=== PATIENT | female | born 1950 | race Caucasian/White ===

== ENCOUNTER → 2018-12-05 | Outpatient (CLI) | payer MEDICARE, BC ==
[2018-12-05 12:09] LABS: ABSOLUTE BASOPHILS 0.1 thou/uL (0.0-0.2); ABSOLUTE EOSINOPHILS 0.3 thou/uL (0.0-0.7); ABSOLUTE LYMPHOCYTES 0.9 thou/uL (0.8-5.3); ABSOLUTE MONOCYTES 0.3 thou/uL (0.0-1.2); ABSOLUTE NEUTROPHILS 6.3 thou/uL (1.6-8.1); EOSINOPHILS 3.3 %; HEMATOCRIT 41.7 % (37.0-47.0); HEMOGLOBIN 13.8 gm/dL (12.0-15.0); LYMPHOCYTES 11.1 %; MCH 29.6 pg (26.0-34.0); MCHC 33.1 g/dL (28.0-37.0); MCV 89.5 fL (80.0-100.0); MONOCYTES 4.4 %; NUCLEATED RBCS 0 /100WBC; PLATELET COUNT* 229 thou/uL (150-400); POLYS 80.2 %; RBC 4.66 mil/uL (4.20-5.00); RDW-CV 14.6 % (10.5-14.5); WBC 7.9 thou/uL (4.0-11.0)
[2018-12-05 12:24] LABS: ALBUMIN 3.7 g/dL (3.4-5.0); ALKALINE PHOSPHATASE 112 U/L (46-116); ANION GAP 8 mmol/L (7-16); BUN 21 mg/dL (7-18); CALCIUM 8.7 mg/dL (8.5-10.1); CHLORIDE 103 mmol/L (98-107); CHOLESTEROL 184 mg/dL (<200); CO2 30 mmol/L (21-32); CREATININE 0.8 mg/dL (0.6-1.3); GLUCOSE 101 mg/dL (70-99); HDL CHOLESTEROL 71 mg/dL (>40); LDL CHOLESTEROL 96 mg/dL (<100); POTASSIUM 4.2 mmol/L (3.5-5.1); SGOT 18 U/L (15-37); SGPT 23 U/L (30-65); SODIUM 141 mmol/L (136-145); TC:HDL 2.6 Ratio (Not establshd); TOTAL BILIRUBIN 0.4 mg/dL (<0.1-1.0); TOTAL PROTEIN 7.4 g/dL (6.4-8.2); TRIGLYCERIDE 87 mg/dL (<150); VLDL 17 mg/dL (<40)
[2018-12-05 12:25] LABS: SERUM ASSESSMENT Clear
== END ==
LOC: M.CT 11:01
PROVIDERS: Internal Medicine Critical Care Medicine
DX: E78.2 Mixed hyperlipidemia (principal); K44.9 Diaphragmatic hernia without obstruction or gangrene; M25.511 Pain in right shoulder; E03.8 Other specified hypothyroidism; R91.8 Other nonspecific abnormal finding of lung field; R59.9 Enlarged lymph nodes, unspecified; Z79.899 Other long term (current) drug therapy; Z90.12 Acquired absence of left breast and nipple

== ENCOUNTER → 2019-02-05 | Outpatient (CLI) | payer MEDICARE, BC ==
[~2019-02-05] MED LIST: ALBUTEROL2.5 MG/31 INH; CLONAZEPAM 0.50.5 M1 PO; IBUPROFEN 800800 M1 PO; OMEPRAZOLE40 MG PO; PULMICORT0.5 MG/22 INH; SINGULAIR 10 MG10 M1 PO; SYNTHROID50 MCG PO; TOPROL XL50 MG PO; VENLAFAXINE HCL75 M1 PO; VENTOLIN HFA 1818 GM INH; ZOCOR20 MG PO
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
== END | disposition home or self-care (01) ==
LOC: M.PC 07:30
DX: M79.18 Myalgia, other site (principal)

== ENCOUNTER → 2019-03-10 | Outpatient (CLI) | payer MEDICARE, BC | END | disposition home or self-care (01) | LOC: M.PC 05:03 | DX: M79.18 Myalgia, other site (principal); G89.29 Other chronic pain; E78.00 Pure hypercholesterolemia, unspecified; E03.9 Hypothyroidism, unspecified; M81.0 Age-related osteoporosis without current pathological fracture; K21.9 Gastro-esophageal reflux disease without esophagitis; F32.9 Major depressive disorder, single episode, unspecified; G47.33 Obstructive sleep apnea (adult) (pediatric); Z98.890 Other specified postprocedural states; Z79.899 Other long term (current) drug therapy; Z90.49 Acquired absence of other specified parts of digestive tract; Z90.710 Acquired absence of both cervix and uterus; Z88.6 Allergy status to analgesic agent ==

== ENCOUNTER → 2019-04-09 | Outpatient (CLI) | payer MEDICARE, BC ==
--- NOTE | ~2019-04-09 | PAINCON ---
[address] [address] PAIN MANAGEMENT CONSULTATION Name: BEATRICE MCDONNELL Room: [facility] John#: [id number] Admission: 04/09/19 Attend Phys: Laurel Pendleton MD Discharge: Date of : 48 Report #: [id number] THIS REPORT FOR: //name// CC: Britta Pendleton DATE OF SERVICE: 04/09/2019 CHIEF COMPLAINT: Right hip pain and mid back pain. HISTORY OF PRESENT ILLNESS: The patient is a 69-year-old female who has been followed in the pain clinic. She complains of pain in her right hip as well as pain in the mid back area. Notes that the pain is worse with certain movements. It is still problem on a daily basis. Pain is worse with prolonged standing as well as with bending. She has noticed improvement in her pain after injection. Continues to use nonsteroidal anti-inflammatory medications. Finds that ibuprofen p.r.n. is helpful. ALLERGIES: CODEINE. CURRENT MEDICATIONS: Albuterol 2.5 mg inhaler, Ventolin 2 puffs q. 6 hours, Pulmicort 0.5 mg, clonazepam 0.5 mg b.i.d., ibuprofen 800 mg q.i.d., Synthroid 50 mcg, metoprolol XL, Singulair 10 mg, omeprazole 40 mg, simvastatin 20 mg, and venlafaxine 75 mg b.i.d. PAIN CLINIC ASSESSMENT AND PQRS: 1. The patient is not being treated for osteoarthritis. She is not being treated for rheumatoid arthritis. She is being treated for osteoporosis. 2. Height 5 feet 3 inches, weight 192 pounds, BMI is 34.1. 3. Vital signs: Blood pressure 125/74, heart rate 72, respiratory rate 16, room air saturation 97%, temperature 97.2. 4. Pain intensity /10. 5. Fall history: The patient has not fallen in the last 3 months. 6. Blood thinner. The patient is not on a blood thinning medication. 7. Hypertension. The patient is not being treated for hypertension. 8. Opioids greater than 6 weeks. The patient is not being treated with opioid on a regular basis. 9. Risk assessment tool 65/70. 10. Functional assessment tool. 11. Recreational drug use. The patient denies use of recreational drugs. 12. Tobacco: The patient denies use of tobacco. 13. Alcohol: The patient denies use of alcohol. PHYSICAL EXAMINATION: GENERAL: The patient is a well-developed, well-nourished white female. Appears her stated age. She is alert and oriented x 3. [place] [address] PAIN MANAGEMENT CONSULTATION Name: BEATRICE MCDONNELL Room: [facility]#: [id number] Admission: 04/09/19 Attend Phys: Laurel Pendleton MD Discharge: Date of : 48 Report #: [id number] Speech is fluent. HEENT: Normocephalic, atraumatic. Extraocular eye muscles intact. Sclerae nonicteric. Mucous membranes are moist. NECK: Without adenopathy or JVD. HEART: Regular rate. Bowel sounds present. MUSCULOSKELETAL: The patient without significant scoliosis, kyphosis, or lordosis. The patient has some pain in the mid back area with palpation in the left as well as the right posterior superior iliac spine area. Palpation in these reproduce trigger points in 2 places in the left side and the right side. The patient has some discomfort in her right shoulder. IMPRESSION: 1. Myofascial pain, lower back, left posterior superior iliac spine area on the left. 2. Trigger point on the right side in the area of the iliac posterior superior area. 3. Right shoulder with numbness down to the elbow with tingling in the fingers. 4. History of chronic cough, history of sarcoidosis. 5. Gastroesophageal reflux. 6. Hypercholesterolemia. 7. Hypothyroidism. 8. Insomnia. 9. Osteoporosis. 10. Sleep apnea. 11. History of supraventricular tachycardia. RECOMMENDATIONS: We discussed treatment options with the patient. Risks and benefits of a trigger point injection were discussed. They could include bleeding, infection, worsening of pain, no improvement in pain, and the patient elects to proceed. PROCEDURE NOTE: The patient was taken to the procedure area. She was then assisted in getting on the examination table. She sat perpendicular to the table. A chair was placed under her feet. The patient leaned forward as to tie her shoes. Palpation in the left as well as the right posterior superior iliac spine area near the gluteus jillian and latissimus dorsi reproduced a trigger point #1 and trigger point #2. The patient's back was sterilely prepped. A chlorhexidine solution was used. The left trigger point was identified. A 25-gauge needle was then advanced into the trigger point area. Aspiration was negative. This was near the gluteus jillian posterior superior iliac spine area and into the latissimus dorsi. A total of 20 mg triamcinolone, 40 mg Depo-Medrol was injected on the left side with 8 mL of 0.5% bupivacaine. The right trigger point was identified. This area too had been sterilely prepped with a chlorhexidine solution. A 25-gauge needle was then advanced in the area of the posterior superior iliac spine near the gluteus jillian and latissimus dorsi. This did reproduce the patient's discomfort. [place] [address] PAIN MANAGEMENT CONSULTATION Name: BEATRICE MCDONNELL Room: [facility]#: [id number] Admission: 04/09/19 Attend Phys: Laurel Pendleton MD Discharge: Date of : 48 Report #: [id number] Total of 20 mg triamcinolone and 40 mg Depo-Medrol was injected with 8 mL of 0.5% bupivacaine. The patient's pain decreased to 1 at the time of discharge. She remained in the Pain Clinic for an appropriate amount of time. She will follow up in the future as needed. We would like to thank you for letting us participate in her care. We hope she continues to improve. By: [id number]. Ashish Pendleton MD /nt
== END | disposition home or self-care (01) ==
LOC: M.PC 05:09
DX: M79.18 Myalgia, other site (principal); E03.9 Hypothyroidism, unspecified; E78.00 Pure hypercholesterolemia, unspecified; M81.0 Age-related osteoporosis without current pathological fracture; G47.33 Obstructive sleep apnea (adult) (pediatric); K21.9 Gastro-esophageal reflux disease without esophagitis; Z98.890 Other specified postprocedural states; Z79.899 Other long term (current) drug therapy; Z88.6 Allergy status to analgesic agent

== ENCOUNTER → 2019-05-26 | Outpatient (CLI) | payer MEDICARE, BC ==
--- NOTE | ~2019-05-26 | PAINCON ---
[address] [address] PAIN MANAGEMENT CONSULTATION Name: KECIABEATRICE J Room: [facility] RADHA Lopez#: [id number] Admission: 05/26/19 Attend Phys: Laurel Pendleton MD Discharge: Date of : 48 Report #: [id number] THIS REPORT FOR: //name// CC: Britta Pendleton DATE OF SERVICE: 05/26/2019 CHIEF COMPLAINT: Trigger point helped a lot. HISTORY: The patient is a 69-year-old female who has been seen in the pain clinic because of myofascial pain. She underwent an epidural trigger point injection at the last visit. She noticed an improvement in her pain. She is having some mid to low back discomfort involving the right low back area with some pain that radiates down the posterior portion of her buttocks. She notes that when lying on her left side, she notes some increased discomfort in her right hip. She has some aching pain bilaterally in her knees and in her feet. Finds that ibuprofen is helpful. Rates her pain as about 50% improved with use of her current medications of ibuprofen and greater improvement was noted with trigger point injections. She has had no complications from them. She has returned today with a desire to undergo a trigger point injection to the right low back area. She underwent an injection on the left and right area at the last visit. The left side is not very problematic today. She would like to have the right side treated. ALLERGIES: CODEINE. CURRENT MEDICATIONS: Albuterol 2.5 mg, Ventolin 2 puffs q. 6 hours, Pulmicort 0.5 mg, clonazepam 0.5 mg b.i.d., ibuprofen 800 mg q.i.d., Synthroid 50 mcg, metoprolol XL, Singulair 10 mg, omeprazole 40 mg, simvastatin 20 mg, venlafaxine 75 mg b.i.d. PAIN CLINIC ASSESSMENT/PQRS: 1. The patient is not being treated for osteoarthritis. She is not been treated for rheumatoid arthritis. She has a history of osteoporosis. 2. Height 5 feet 3 inches, weight 197 pounds, BMI is 34.4. 3. VITAL SIGNS: Blood pressure 138/94, heart rate 66, respiratory rate 16, room air saturation is 96%. Temperature 98.1. 4. Pain intensity 03/11. 5. Fall history: The patient has not fallen in the last 3 months. 6. Blood thinner. The patient is not on a blood thinning medication. 7. Hypertension. The patient is not being treated for hypertension. 8. Opioid greater than 6 weeks. The patient is not being treated with opioids on a regular basis. 9. Risk assessment tool 65/70. 10. Functional assessment tool, low [place] [address] PAIN MANAGEMENT CONSULTATION Name: MCDONNELLBEATRICE FISCHER Room: [facility]#: [id number] Admission: 05/26/19 Attend Phys: Laurel Pendleton MD Discharge: Date of : 48 Report #: [id number] 11. Recreational drug use. The patient denies use of recreational drugs. 12. Tobacco: The patient denies use of tobacco. 13. Alcohol: The patient denies use of alcoholic beverages. PHYSICAL EXAMINATION: GENERAL: The patient is a well-developed, well-nourished white female. Appears her stated age. She is alert and oriented x 3. Her affect is appropriate. Speech is fluent. HEENT: Normocephalic, atraumatic. Extraocular eye muscles intact. Sclerae nonicteric. Mucous membranes are moist. The patient is wearing glasses. NECK: Without adenopathy or JVD. HEART: Regular rate. ABDOMEN: Bowel sounds present. MUSCULOSKELETAL: Without significant scoliosis, kyphosis or lordosis. The patient has pain and discomfort in the lower portion of her back in the area of the posterior superior iliac spine on the right as well as some discomfort in the left, but this is not near as problematic as the right side. Palpation in this area reproduces the patient's discomfort. IMPRESSION: 1. Myofascial pain, low back area, right posterior superior iliac spine area. 2. Right shoulder pain with numbness down to the elbow in the past with tingling. 3. History of chronic cough. 4. History of sarcoidosis. 5. Gastroesophageal reflux. 6. Hypercholesterolemia. 7. Hypothyroidism. 8. Insomnia. 9. Osteoporosis. 10. Sleep apnea. 11. History of supraventricular tachycardia. RECOMMENDATIONS: We discussed treatment options with the patient. Risks and benefits of a trigger point injection were discussed. They include but are not limited to infection, worsening of pain, no improvement in pain, nerve damage, bleeding. The patient elects to proceed. PROCEDURE NOTE: The patient was taken to the procedure area. She was assisted in getting on the examination table. The patient sat perpendicular to the table. A chair was placed under her feet. She leans forward. Her back was sterilely prepped with a chlorhexidine solution. A trigger point was identified. A 25-gauge needle was then advanced into the area of the trigger point. The patient states this did reproduce the discomfort. Aspiration was negative. A total of 8 mL of 0.5% bupivacaine and 80 mg Depo-Medrol was injected. The patient tolerated the procedure well. There were no [facility] [address] [place] [address] PAIN MANAGEMENT CONSULTATION Name: MCDONNELLBEATRICE Room: [facility] RADHA Lopez#: [id number] Admission: 05/26/19 Attend Phys: Laurel Pendleton MD Discharge: Date of : 48 Report #: [id number] complications. She remained in the Pain Clinic for an appropriate amount of time. She will follow up in the future as needed. We would like to thank you for letting us participate in her care. We hope she continues to improve. By: [id number]. Ashish Pendleton MD /nt
== END | disposition home or self-care (01) ==
LOC: M.PC 03-12 09:00
DX: M79.18 Myalgia, other site (principal); G89.29 Other chronic pain; M25.511 Pain in right shoulder; E78.00 Pure hypercholesterolemia, unspecified; E03.9 Hypothyroidism, unspecified; K21.9 Gastro-esophageal reflux disease without esophagitis; M81.0 Age-related osteoporosis without current pathological fracture; G47.30 Sleep apnea, unspecified; G47.00 Insomnia, unspecified; Z98.890 Other specified postprocedural states; Z79.899 Other long term (current) drug therapy; Z88.6 Allergy status to analgesic agent

== ENCOUNTER → 2019-08-27 | Outpatient (CLI) | payer MEDICARE, BC ==
--- NOTE | 2019-09-23 09:09 | PAINCON ---
[address] [address] PAIN MANAGEMENT CONSULTATION Name: KECIABEATRICE J [facility]HLANDSFrancine#: [id number] Admission: 08/27/19 Attend Phys: Laurel Pendleton MD Discharge: Date of : 48 Report #: [id number] THIS REPORT FOR: //name// CC: Britta Pendleton DATE OF SERVICE: 08/27/2019 CHIEF COMPLAINT: "Pain in my right hip and into the groin area." HISTORY: The patient is a 69-year-old female who has been followed in the pain clinic. She has had myofascial trigger point injections in the past. She found that these were beneficial. She returns today with pain that involves her low back. There is pain in the right groin area. Notes that the pain can be problematic when she is lying on her side. Notes that certain movements and external and internal rotation of her hip can increase pain and discomfort. This is problematic on the right side, but not on the left side. She feels that the pain in the hip area has been quite problematic and definitely decreases her ability to engage in activities of daily living. ALLERGIES: CODEINE. CURRENT MEDICATIONS: Albuterol 2.5 mg, Ventolin 2 puffs q. 6 hours, Pulmicort 0.5 mg, clonazepam 0.5 mg b.i.d., ibuprofen 800 mg q.i.d., Synthroid 50 mcg, metoprolol XL, Singulair 10 mg, omeprazole 40 mg, simvastatin 20 mg, venlafaxine 75 mg b.i.d. PAIN CLINIC ASSESSMENT AND PQRS: 1. The patient is not being treated for osteoarthritis. She is not being treated for rheumatoid arthritis. Does have a history of osteoporosis. 2. Height 5 feet 3 inches, weight is 194 pounds, BMI is 34. 3. Vital signs: Blood pressure 118/70, heart rate 69, respiratory rate 16, room air saturation 97%, temperature at 97.7. 4. Pain intensity 09/10. The patient has not fallen since we saw her last. 5. Blood thinner. The patient is not on a blood thinning medication. 6. Hypertension. The patient is not being treated for hypertension. 7. Opioids greater than 6 weeks. 8. Risk assessment tool, low for opioid use. 9. Functional assessment tool. 10. Recreational drug use. The patient denies. 11. Tobacco: The patient denies. PHYSICAL EXAMINATION: GENERAL: The patient is a well-developed, well-nourished white female. Appears her stated age. She is alert and oriented x 3. Affect is appropriate. [place] [address] PAIN MANAGEMENT CONSULTATION Name: BEATRICE MCDONNELL Room: [facility]#: [id number] Admission: 08/27/19 Attend Phys: Laurel Pendleton MD Discharge: Date of : 48 Report #: [id number] HEENT: Normocephalic, atraumatic. Extraocular eye muscles intact. Sclerae nonicteric. Mucous membranes are moist. NECK: Without adenopathy or JVD. HEART: Regular rate. ABDOMEN: Nontender. Bowel sounds present. MUSCULOSKELETAL: Without significant scoliosis, kyphosis or lordosis. The patient has pain and discomfort in lower portion of her back with pain in the right inguinal area. With the patient lying supine, internal and external rotation of her hip cause some discomfort, particularly internal rotation of the hip causes the pain to localize pain and discomfort in the hip area and down to her leg. IMPRESSION: 1. Right hip pain with pain in the right groin area. 2. Myofascial pain, low back status post right posterior iliac spine area. 3. Right shoulder pain with numbness down to the elbow in the past with tingling. 4. History of chronic cough. 5. History of sarcoidosis. 6. Gastroesophageal reflux. 7. Hypercholesterolemia. 8. Hypothyroidism. 9. Insomnia. 10. Osteoporosis. 11. Sleep apnea. 12. History of supraventricular tachycardia. RECOMMENDATIONS: We discussed treatment options with the patient. At this juncture, she is having pain and discomfort in the right hip and groin area. This appears to me that is most likely some irritation in the hip area. The risks and benefits of a hip injection under fluoroscopy were discussed. They could include but are not limited to infection, worsening of pain, nerve damage, bleeding, and the patient elects to proceed. PROCEDURE NOTE: The patient was taken to the procedure area. She was then assisted in getting on the examination table. She was placed in the supine position. The right groin area was sterilely prepped with a chlorhexidine solution and allowed to dry. After this had dried, a second wash of the area with a chlorhexidine solution was performed and allowed to dry. Fluoroscopy was used to identify the right hip area. This area was then infiltrated with 0.5% to perform a skin wheal. A 25-gauge needle was then used to anesthetize the needle path. A 20-gauge spinal needle was then advanced into the area of the left hip. Aspiration was negative. Contrast dye was injected and an appropriate pattern was noted. A total of 40 mg of triamcinolone was injected with 3 mL of 0.5% bupivacaine. The patient tolerated the procedure well. There were no complications. A total of 17 seconds' fluoroscopy time [place] [address] PAIN MANAGEMENT CONSULTATION Name: BEATRICE MCDONNELL Room: [facility]#: [id number] Admission: 08/27/19 Attend Phys: Laurel Pendleton MD Discharge: Date of : 48 Report #: [id number] patient's pain decreased from 10-2 at the time of discharge. She will follow up in the future as needed. We would like to thank you for letting us participate in her care. We hope she continues to improve. ADDENDUM The right hip was the hip that was injected and treated. <ELECTRONICALLY SIGNED> By: Laurel Pendleton MD 09/23/19 [id number]. Ashish Pendleton MD /[facility]
== END | disposition home or self-care (01) ==
LOC: M.PC 04:51
DX: M25.551 Pain in right hip (principal); M79.18 Myalgia, other site; M25.511 Pain in right shoulder; E03.9 Hypothyroidism, unspecified; E78.00 Pure hypercholesterolemia, unspecified; K21.9 Gastro-esophageal reflux disease without esophagitis; G47.00 Insomnia, unspecified; M81.0 Age-related osteoporosis without current pathological fracture; G47.30 Sleep apnea, unspecified; Z98.890 Other specified postprocedural states; Z88.8 Allergy status to other drugs, medicaments and biological substances; Z79.899 Other long term (current) drug therapy

== ENCOUNTER → 2019-11-09 | Outpatient (CLI) | payer MEDICARE, BC | LOC: M.CT 09:15 | DX: R91.1 Solitary pulmonary nodule (principal); D86.9 Sarcoidosis, unspecified; R91.8 Other nonspecific abnormal finding of lung field; K44.9 Diaphragmatic hernia without obstruction or gangrene ==